=== PATIENT | male | born 2005 | race Caucasian/White ===

== ENCOUNTER 2025-01-08 13:58 | Inpatient (IN) ==
[2025-01-08 14:36] LABS: Basophils # (auto) 0.06 K/uL (0.00-0.20); Basophils % (auto) 0.7 %; Eosinophils % (auto) 1.2 %; Hematocrit (blood only) 45.4 % (42.0-52.0); Hemoglobin 15.9 g/dl (14.0-18.0); Immature Granulocytes # (auto) 0.06 K/uL (0.01-0.20); Immature Granulocytes % (auto) 0.7 %; Lymphocytes # (auto) 1.32 K/uL (1.20-3.40); Lymphocytes % (auto) 16.1 %; Mean Corpuscular Hemoglobin 31.2 pg (25.0-34.0); Mean Platelet Volume 11.3 fL (9.4-12.4); Monocytes # (auto) 0.79 K/uL (0.11-0.59); Monocytes % (auto) 9.7 %; Neutrophils # (auto) 5.85 K/uL (1.40-6.50); Neutrophils % (auto) 71.6 %; Platelet Count 327 K/uL (130-400); RDW Coefficient of Variation 15.9 % (11.5-14.5); RDW Standard Deviation 51.7 fL (36.4-46.3); White Blood Count 8.18 K/ul (4.8-10.8)
--- NOTE | 2025-01-08 14:44 | Emergency Department Note ---
ED Provider Note CHIEF COMPLAINT: Jaundice HISTORY OF PRESENTING ILLNESS: The patient is a pleasant 19-year-old male who arrives to the emergency department for evaluation of bilateral discoloration of eyes. The patient reports he noted the discoloration upon waking however, noted he has been tired over the last few weeks. He denies recent illness, fever, or abdominal pain. He reports he does drink alcohol 2-4 times per week with an average of 6-10 beverages each time. REVIEW OF SYSTEMS: See HPI for pertinent positives and pertinent negatives. ALLERGIES: See below MEDICATIONS: See below PAST MEDICAL HISTORY: See below PHYSICAL EXAM: VITALS: Vitals are noted on the nurse's note and reviewed by myself. Vital signs stable. GENERAL: 19-year-old male, in no acute distress, nondiaphoretic, well-developed well-nourished. SKIN: The skin is without rashes, erythema, edema, or bruising. HEAD: Normocephalic atraumatic. EYES: Pupils equal round and reactive to light and accommodation. Conjunctivae without injection. Scleral icterus present. Extraocular movements intact. NOSE: Patent, turbinates without inflammation or discharge. No sinus tenderness. MOUTH: Mucous membranes moist. Tonsils are not enlarged. Pharynx without erythema or exudate. Uvula midline. Airway patent. Tongue does not deviate. NECK: Supple without nuchal rigidity. No lymphadenopathy. No thyromegaly. Cervical spine is nontender. No JVD. HEART: Regular rate and rhythm without murmurs gallops or rubs. LUNGS: Clear to auscultation bilaterally without wheezes, rales or rhonchi. No retractions or accessory muscle use. ABDOMEN: Positive bowel sounds x 4. Soft, nontender, without masses or organomegaly. Al sign negative. No guarding or rebound tenderness. MUSCULOSKELETAL: No muscle atrophy, erythema, or edema noted. Full range of motion without joint tenderness in all extremities. No tenderness to palpation. Normal gait. Strength 5/5 throughout. NEURO: Patient was alert and oriented to person place and time. No focal neurological deficits. DIFFERENTIAL DIAGNOSIS: [] ED COURSE AND MEDICAL DECISION MAKING: HISTORY FROM INDEPENDENT HISTORIAN: [] MEDICATIONS GIVEN: [] MONITOR: Continuous rn family: Order was placed for continuous rn family. Patient was placed on the rn family and continuous pulse ox. Patient was noted to be in normal sinus rhythm at an initial rate of [] bpm per my interpretation. EKG: EKG was interpreted by myself as []. INTERPRETATION OF LABS: I interpreted the labs with full lab results as below in the lab section of this note. Pertinent lab results discussed in the MDM section below. INTERPRETATION OF IMAGING: Imaging studies were interpreted by myself and read by radiology as per the imaging section of this note. [] EXTERNAL RECORDS REVIEWED: [] CHRONIC MEDICAL/SOCIAL CONDITIONS AFFECTING CARE: [] ESCALATION OF CARE CONSIDERED: [] CONSULTATIONS: [] PROCEDURES: [] MDM SUMMARY: I examined the patient. An IV lock was placed and labs were drawn. []. The patient was educated on the treatment plan and the discharge instructions. The patient was discharged home in stable condition. DIAGNOSIS: [] The chart was completed utilizing [employer] voice recognition software. Grammatical errors, random word insertions, pronoun errors, and incomplete sentences are an occasional consequence of this system due to software limitations, ambient noise, and hardware issues. Any formal questions or concerns about the content, text, or information contained within the body of this dictation should be directly addressed to the provider for clarification. TREATMENT PLAN/DISCHARGE INSTRUCTIONS: [] Past Med/Surg History Problem List Hepatitis Medical History No significant past medical history Surgical History No history of previous surgery Social History Smoking Status: Never smoker Second Hand Exposure: No; Do You Dip or Chew Tobacco: No; Hx Alcohol Use: Yes Alcohol type: beer and hard liquor Hx Substance Use: Yes Last Used Substance Other:: stated used cocaine last semester Preferred Language: Greenlandic Communication Ability: Effective Lens Edger Required: No Beliefs That Will Affect Care: None Current Living Situation: Boarding Home Current Living Situation Comment: fraternity house 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: [employer]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 [place] Feels Safe at Home: Yes Assistive Devices: None Allergies Allergies Allergy/AdvReac Type Severity Reaction Status Date / Time No Known Allergies Allergy Verified 01/08/25 15:54 Home Meds Home Medications Medication Instructions Recorded Confirmed No Known Home Medications 08/08/24 01/08/25 Results & Data (ED) Vital Signs Vital Signs - 24 hr 01/08/25 14:02 01/08/25 14:19 01/08/25 14:27 Temperature 36.7 C Temperature Source Temporal Artery Scan Pulse Rate 67 67 Pulse Rate [Apical] 63 Pulse Rhythm [Apical] Regular Pulse Strength [Apical] Normal Respiratory Rate 16 18 Respiratory Effort / Characteristics Non-Labored Spontaneous Non-Labored Respiratory Depth Normal Normal Respiratory Pattern Regular Regular Blood Pressure 129/65 Blood Pressure [Right Arm] 141/89 H Blood Pressure Mean 86 Blood Pressure Mean [Right Arm] 106 Blood Pressure Position Sitting Blood Pressure Position [Right Arm] Lying Pulse Oximetry 98 99 Oxygen Delivery Method Room Air Room Air Sepsis Recent Fever Within 48 Hours No Sepsis New/Unexplained Change in Mental Status No Sepsis Action Taken by Nursing No Action Required Laboratory Data 01/09/25 08:30 01/10/25 13:26 Lab Results 01/08/25 01/08/25 01/08/25 Range/Units 14:20 14:20 14:20 WBC 8.18 (4.8-10.8) K/ul RBC 5.10 (4.70-6.10) M/uL Hgb 15.9 (14.0-18.0) g/dl Hct 45.4 (42.0-52.0) % MCV 89.0 (80.0-100.0) fL MCH 31.2 (25.0-34.0) pg MCHC 35.0 (32.0-36.0) g/dL RDW Std Deviation 51.7 H (36.4-46.3) fL RDW Coeff of Amrita 15.9 H (11.5-14.5) % Plt Count 327 (130-400) K/uL MPV 11.3 (9.4-12.4) fL Immature Gran % (Auto) 0.7 % Neut % (Auto) 71.6 % Lymph % (Auto) 16.1 % [place] % (Auto) 9.7 % Eos % (Auto) 1.2 % Baso % (Auto) 0.7 % Neut # (Auto) 5.85 (1.40-6.50) K/uL Lymph # (Auto) 1.32 (1.20-3.40) K/uL [place] # (Auto) 0.79 H (0.11-0.59) K/uL Eos # (Auto) 0.10 (0.00-0.50) K/uL Baso # (Auto) 0.06 (0.00-0.20) K/uL Immature Gran # (Auto) 0.06 (0.01-0.20) K/uL PT 10.9 (9.0-12.0) Seconds INR 1.0 (0.9-1.1) Sodium 136 (136-145) mmol/L Potassium 4.1 (3.5-5.1) mmol/L Chloride 102 (98-107) mmol/L Carbon Dioxide 27 (21-32) mmol/L Anion Gap 7 (3-11) BUN 13 (6-23) mg/dl Creatinine 1.25 (0.6-1.4) mg/dl Est Cr Clr Drug Dosing 82.6 ml/min eGFR 84.02 BUN/Creatinine Ratio 10.4 (10-20) Glucose 97 (70-99(Fasting)) mg/dl Calcium 9.5 (8.6-10.3) mg/dl Transferrin (200-360) mg/dl Ferritin (8-388) ng/ml Total Bilirubin 10.5 H 10.4 H (0.2-1.0) mg/dl Direct Bilirubin 6.4 H (0-0.2) mg/dl AST 399 H 393 H (13-39) U/L ALT 794 H (7-52) U/L Alkaline Phosphatase (34-104) U/L Total Protein (6.0-8.3) gm/dl Albumin (3.4-5.0) gm/dl Globulin (2.5-4.0) gm/dl Albumin/Globulin Ratio (0.9-2) Lipase (11-82) U/L Urine Color Urine Appearance (Clear) Urine pH (4.5-7.5) Ur Specific [place] (1.000-1.030) Urine Protein (Negative) Urine Glucose (UA) (Negative) Urine Ketones (Negative) Urine Blood (Negative) Urine Nitrite (Negative) Urine Bilirubin (Negative) Urine Urobilinogen (Negative) Ur Leukocyte Esterase (Negative) Urine Opiates Screen (Neg) Ur Methadone, Qual (Neg) Urine Fentanyl Screen (Neg) Acetaminophen (10-30) ug/ml Urine Barbiturates (Neg) Ur Phencyclidine (PCP) (Neg) U Amphetamin/Meth Scrn (Neg) MDMA (Ecstasy) Screen (Neg) U Benzodiazepines Scrn (Neg) Ur Cocaine Metabolite (Neg) U Marijuana (THC) Screen (Neg) U Marijuana THC Carboxy (<5) ng/mL Drug Screen Comment Ethyl Alcohol mg/dL (<10.0) mg/dl Adenovirus (PCR) (NotDetected) B. pertussis DNA (PCR) (NotDetected) B.parapertussis DNA PCR (NotDetected) C. pneumoniae DNA (PCR) (NotDetected) Coronavirus OC43 (PCR) (NotDetected) Coronavirus HKU1 (PCR) (NotDetected) Coronavirus 229E (PCR) (NotDetected) SARS-CoV-2 (PCR) (NotDetected) Coronavirus NL63 (PCR) (NotDetected) CMV IgM Ab AU/mL CMV DNA Qual PCR CMV IgG Ab/TORCH U/mL EBV Capsid Ag IgG Ab EBV Caps Ag IgG Sig Str (< 18.0) U/mL EBV Capsid Ag IgM Ab EBV Caps Ag IgM Sig Str (< 36.0) U/mL EBV Early Antigen IgG (Negative) EBV EA Signal Strength (< 9.0) U/mL EBV Nuclear Antigen Ab EBV Nucl Ag IgG Sig Str (< 18.0) U/mL EBV Interpretation Hepatitis A IgM Ab (NON-REACTIVE) Hep Bs Antigen (Negative) Hep B Core IgM Ab (NON-REACTIVE) Hepatitis C Antibody (Negative) Monoscreen (Negative) Human Metapneumovir PCR (NotDetected) Influenza Type A (PCR) (NotDetected) Influenza Type B (PCR) (NotDetected) M. pneumoniae (PCR) (NotDetected) Parainfluenza 1 (PCR) (NotDetected) Parainfluenza 2 (PCR) (NotDetected) Parainfluenza 3 (PCR) (NotDetected) Parainfluenza 4 (PCR) (NotDetected) RSV (PCR) (NotDetected) Entero/Rhino (PCR) (NotDetected) Ref Lab Test Source 01/08/25 01/08/25 01/08/25 Range/Units 14:20 14:20 14:20 WBC (4.8-10.8) K/ul RBC (4.70-6.10) M/uL Hgb (14.0-18.0) g/dl Hct (42.0-52.0) % MCV (80.0-100.0) fL MCH (25.0-34.0) pg MCHC (32.0-36.0) g/dL RDW Std Deviation (36.4-46.3) fL RDW Coeff of Amrita (11.5-14.5) % Plt Count (130-400) K/uL MPV (9.4-12.4) fL Immature Gran % (Auto) % Neut % (Auto) % Lymph % (Auto) % [place] % (Auto) % Eos % (Auto) % Baso % (Auto) % Neut # (Auto) (1.40-6.50) K/uL Lymph # (Auto) (1.20-3.40) K/uL [place] # (Auto) (0.11-0.59) K/uL Eos # (Auto) (0.00-0.50) K/uL Baso # (Auto) (0.00-0.20) K/uL Immature Gran # (Auto) (0.01-0.20) K/uL PT (9.0-12.0) Seconds INR (0.9-1.1) Sodium (136-145) mmol/L Potassium (3.5-5.1) mmol/L Chloride (98-107) mmol/L Carbon Dioxide (21-32) mmol/L Anion Gap (3-11) BUN (6-23) mg/dl Creatinine (0.6-1.4) mg/dl Est Cr Clr Drug Dosing ml/min eGFR BUN/Creatinine Ratio (10-20) Glucose (70-99(Fasting)) mg/dl Calcium (8.6-10.3) mg/dl Transferrin (200-360) mg/dl Ferritin (8-388) ng/ml Total Bilirubin (0.2-1.0) mg/dl Direct Bilirubin (0-0.2) mg/dl AST (13-39) U/L ALT 796 H (7-52) U/L Alkaline Phosphatase 173 H 162 H (34-104) U/L Total Protein 7.4 7.3 (6.0-8.3) gm/dl Albumin 4.5 (3.4-5.0) gm/dl Globulin (2.5-4.0) gm/dl Albumin/Globulin Ratio (0.9-2) Lipase (11-82) U/L Urine Color Urine Appearance (Clear) Urine pH (4.5-7.5) Ur Specific [place] (1.000-1.030) Urine Protein (Negative) Urine Glucose (UA) (Negative) Urine Ketones (Negative) Urine Blood (Negative) Urine Nitrite (Negative) Urine Bilirubin (Negative) Urine Urobilinogen (Negative) Ur Leukocyte Esterase (Negative) Urine Opiates Screen (Neg) Ur Methadone, Qual (Neg) Urine Fentanyl Screen (Neg) Acetaminophen (10-30) ug/ml Urine Barbiturates (Neg) Ur Phencyclidine (PCP) (Neg) U Amphetamin/Meth Scrn (Neg) MDMA (Ecstasy) Screen (Neg) U Benzodiazepines Scrn (Neg) Ur Cocaine Metabolite (Neg) U Marijuana (THC) Screen (Neg) U Marijuana THC Carboxy (<5) ng/mL Drug Screen Comment Ethyl Alcohol mg/dL (<10.0) mg/dl Adenovirus (PCR) (NotDetected) B. pertussis DNA (PCR) (NotDetected) B.parapertussis DNA PCR (NotDetected) C. pneumoniae DNA (PCR) (NotDetected) Coronavirus OC43 (PCR) (NotDetected) Coronavirus HKU1 (PCR) (NotDetected) Coronavirus 229E (PCR) (NotDetected) SARS-CoV-2 (PCR) (NotDetected) Coronavirus NL63 (PCR) (NotDetected) CMV IgM Ab AU/mL CMV DNA Qual PCR CMV IgG Ab/TORCH U/mL EBV Capsid Ag IgG Ab EBV Caps Ag IgG Sig Str (< 18.0) U/mL EBV Capsid Ag IgM Ab EBV Caps Ag IgM Sig Str (< 36.0) U/mL EBV Early Antigen IgG (Negative) EBV EA Signal Strength (< 9.0) U/mL EBV Nuclear Antigen Ab EBV Nucl Ag IgG Sig Str (< 18.0) U/mL EBV Interpretation Hepatitis A IgM Ab (NON-REACTIVE) Hep Bs Antigen (Negative) Hep B Core IgM Ab (NON-REACTIVE) Hepatitis C Antibody (Negative) Monoscreen (Negative) Human Metapneumovir PCR (NotDetected) Influenza Type A (PCR) (NotDetected) Influenza Type B (PCR) (NotDetected) M. pneumoniae (PCR) (NotDetected) Parainfluenza 1 (PCR) (NotDetected) Parainfluenza 2 (PCR) (NotDetected) Parainfluenza 3 (PCR) (NotDetected) Parainfluenza 4 (PCR) (NotDetected) RSV (PCR) (NotDetected) Entero/Rhino (PCR) (NotDetected) Ref Lab Test Source 01/08/25 01/08/25 01/08/25 Range/Units 14:20 14:40 15:39 WBC (4.8-10.8) K/ul RBC (4.70-6.10) M/uL Hgb (14.0-18.0) g/dl Hct (42.0-52.0) % MCV (80.0-100.0) fL MCH (25.0-34.0) pg MCHC (32.0-36.0) g/dL RDW Std Deviation (36.4-46.3) fL RDW Coeff of Amrita (11.5-14.5) % Plt Count (130-400) K/uL MPV (9.4-12.4) fL Immature Gran % (Auto) % Neut % (Auto) % Lymph % (Auto) % [place] % (Auto) % Eos % (Auto) % Baso % (Auto) % Neut # (Auto) (1.40-6.50) K/uL Lymph # (Auto) (1.20-3.40) K/uL [place] # (Auto) (0.11-0.59) K/uL Eos # (Auto) (0.00-0.50) K/uL Baso # (Auto) (0.00-0.20) K/uL Immature Gran # (Auto) (0.01-0.20) K/uL PT (9.0-12.0) Seconds INR (0.9-1.1) Sodium (136-145) mmol/L Potassium (3.5-5.1) mmol/L Chloride (98-107) mmol/L Carbon Dioxide (21-32) mmol/L Anion Gap (3-11) BUN (6-23) mg/dl Creatinine (0.6-1.4) mg/dl Est Cr Clr Drug Dosing ml/min eGFR BUN/Creatinine Ratio (10-20) Glucose (70-99(Fasting)) mg/dl Calcium (8.6-10.3) mg/dl Transferrin 303 (200-360) mg/dl Ferritin 1263.4 H (8-388) ng/ml Total Bilirubin (0.2-1.0) mg/dl Direct Bilirubin 6.8 H (0-0.2) mg/dl AST (13-39) U/L ALT (7-52) U/L Alkaline Phosphatase (34-104) U/L Total Protein (6.0-8.3) gm/dl Albumin 4.2 (3.4-5.0) gm/dl Globulin 2.9 (2.5-4.0) gm/dl Albumin/Globulin Ratio 1.6 (0.9-2) Lipase 29 (11-82) U/L Urine Color Dark Yellow Urine Appearance Clear (Clear) Urine pH 8.5 H (4.5-7.5) Ur Specific [place] 1.013 (1.000-1.030) Urine Protein Negative (Negative) Urine Glucose (UA) Negative (Negative) Urine Ketones Negative (Negative) Urine Blood Negative (Negative) Urine Nitrite Negative (Negative) Urine Bilirubin 2+ H (Negative) Urine Urobilinogen Positive H (Negative) Ur Leukocyte Esterase Negative (Negative) Urine Opiates Screen Neg (Neg) Ur Methadone, Qual Neg (Neg) Urine Fentanyl Screen Neg (Neg) Acetaminophen < 3 L (10-30) ug/ml Urine Barbiturates Neg (Neg) Ur Phencyclidine (PCP) Neg (Neg) U Amphetamin/Meth Scrn Neg (Neg) MDMA (Ecstasy) Screen Neg (Neg) U Benzodiazepines Scrn Neg (Neg) Ur Cocaine Metabolite Neg (Neg) U Marijuana (THC) Screen Pos H (Neg) U Marijuana THC Carboxy 36 H (<5) ng/mL Drug Screen Comment SEE NOTE Ethyl Alcohol mg/dL < 10.0 (<10.0) mg/dl Adenovirus (PCR) Not Detected (NotDetected) B. pertussis DNA (PCR) Not Detected (NotDetected) B.parapertussis DNA PCR Not Detected (NotDetected) C. pneumoniae DNA (PCR) Not Detected (NotDetected) Coronavirus OC43 (PCR) Not Detected (NotDetected) Coronavirus HKU1 (PCR) Not Detected (NotDetected) Coronavirus 229E (PCR) Not Detected (NotDetected) SARS-CoV-2 (PCR) Not Detected (NotDetected) Coronavirus NL63 (PCR) Not Detected (NotDetected) CMV IgM Ab AU/mL CMV DNA Qual PCR CMV IgG Ab/TORCH U/mL EBV Capsid Ag IgG Ab Positive EBV Caps Ag IgG Sig Str 60.8 (< 18.0) U/mL EBV Capsid Ag IgM Ab Negative EBV Caps Ag IgM Sig Str < 10.0 (< 36.0) U/mL EBV Early Antigen IgG Negative (Negative) EBV EA Signal Strength 6.4 (< 9.0) U/mL EBV Nuclear Antigen Ab Positive EBV Nucl Ag IgG Sig Str 62.1 (< 18.0) U/mL EBV Interpretation See Comment Hepatitis A IgM Ab (NON-REACTIVE) Hep Bs Antigen (Negative) Hep B Core IgM Ab (NON-REACTIVE) Hepatitis C Antibody (Negative) Monoscreen Negative (Negative) Human Metapneumovir PCR Not Detected (NotDetected) Influenza Type A (PCR) Not Detected (NotDetected) Influenza Type B (PCR) Not Detected (NotDetected) M. pneumoniae (PCR) Not Detected (NotDetected) Parainfluenza 1 (PCR) Not Detected (NotDetected) Parainfluenza 2 (PCR) Not Detected (NotDetected) Parainfluenza 3 (PCR) Not Detected (NotDetected) Parainfluenza 4 (PCR) Not Detected (NotDetected) RSV (PCR) Not Detected (NotDetected) Entero/Rhino (PCR) Not Detected (NotDetected) Ref Lab Test Source 01/08/25 01/08/25 Range/Units 16:15 16:16 WBC (4.8-10.8) K/ul RBC (4.70-6.10) M/uL Hgb (14.0-18.0) g/dl Hct (42.0-52.0) % MCV (80.0-100.0) fL MCH (25.0-34.0) pg MCHC (32.0-36.0) g/dL RDW Std Deviation (36.4-46.3) fL RDW Coeff of Amrita (11.5-14.5) % Plt Count (130-400) K/uL MPV (9.4-12.4) fL Immature Gran % (Auto) % Neut % (Auto) % Lymph % (Auto) % [place] % (Auto) % Eos % (Auto) % Baso % (Auto) % Neut # (Auto) (1.40-6.50) K/uL Lymph # (Auto) (1.20-3.40) K/uL [place] # (Auto) (0.11-0.59) K/uL Eos # (Auto) (0.00-0.50) K/uL Baso # (Auto) (0.00-0.20) K/uL Immature Gran # (Auto) (0.01-0.20) K/uL PT (9.0-12.0) Seconds INR (0.9-1.1) Sodium (136-145) mmol/L Potassium (3.5-5.1) mmol/L Chloride (98-107) mmol/L Carbon Dioxide (21-32) mmol/L Anion Gap (3-11) BUN (6-23) mg/dl Creatinine (0.6-1.4) mg/dl Est Cr Clr Drug Dosing ml/min eGFR BUN/Creatinine Ratio (10-20) Glucose (70-99(Fasting)) mg/dl Calcium (8.6-10.3) mg/dl Transferrin (200-360) mg/dl Ferritin (8-388) ng/ml Total Bilirubin (0.2-1.0) mg/dl Direct Bilirubin (0-0.2) mg/dl AST (13-39) U/L ALT (7-52) U/L Alkaline Phosphatase (34-104) U/L Total Protein (6.0-8.3) gm/dl Albumin (3.4-5.0) gm/dl Globulin (2.5-4.0) gm/dl Albumin/Globulin Ratio (0.9-2) Lipase (11-82) U/L Urine Color Urine Appearance (Clear) Urine pH (4.5-7.5) Ur Specific [place] (1.000-1.030) Urine Protein (Negative) Urine Glucose (UA) (Negative) Urine Ketones (Negative) Urine Blood (Negative) Urine Nitrite (Negative) Urine Bilirubin (Negative) Urine Urobilinogen (Negative) Ur Leukocyte Esterase (Negative) Urine Opiates Screen (Neg) Ur Methadone, Qual (Neg) Urine Fentanyl Screen (Neg) Acetaminophen (10-30) ug/ml Urine Barbiturates (Neg) Ur Phencyclidine (PCP) (Neg) U Amphetamin/Meth Scrn (Neg) MDMA (Ecstasy) Screen (Neg) U Benzodiazepines Scrn (Neg) Ur Cocaine Metabolite (Neg) U Marijuana (THC) Screen (Neg) U Marijuana THC Carboxy (<5) ng/mL Drug Screen Comment Ethyl Alcohol mg/dL (<10.0) mg/dl Adenovirus (PCR) (NotDetected) B. pertussis DNA (PCR) (NotDetected) B.parapertussis DNA PCR (NotDetected) C. pneumoniae DNA (PCR) (NotDetected) Coronavirus OC43 (PCR) (NotDetected) Coronavirus HKU1 (PCR) (NotDetected) Coronavirus 229E (PCR) (NotDetected) SARS-CoV-2 (PCR) (NotDetected) Coronavirus NL63 (PCR) (NotDetected) CMV IgM Ab <30.00 AU/mL CMV DNA Qual PCR NOT DETECTED CMV IgG Ab/TORCH <0.60 U/mL EBV Capsid Ag IgG Ab EBV Caps Ag IgG Sig Str (< 18.0) U/mL EBV Capsid Ag IgM Ab EBV Caps Ag IgM Sig Str (< 36.0) U/mL EBV Early Antigen IgG (Negative) EBV EA Signal Strength (< 9.0) U/mL EBV Nuclear Antigen Ab EBV Nucl Ag IgG Sig Str (< 18.0) U/mL EBV Interpretation Hepatitis A IgM Ab NON-REACTIVE (NON-REACTIVE) Hep Bs Antigen Negative (Negative) Hep B Core IgM Ab NON-REACTIVE (NON-REACTIVE) Hepatitis C Antibody Negative (Negative) Monoscreen (Negative) Human Metapneumovir PCR (NotDetected) Influenza Type A (PCR) (NotDetected) Influenza Type B (PCR) (NotDetected) M. pneumoniae (PCR) (NotDetected) Parainfluenza 1 (PCR) (NotDetected) Parainfluenza 2 (PCR) (NotDetected) Parainfluenza 3 (PCR) (NotDetected) Parainfluenza 4 (PCR) (NotDetected) RSV (PCR) (NotDetected) Entero/Rhino (PCR) (NotDetected) Ref Lab Test Source Whole Blood Administered Medications Discontinued Medications Lactated Ringer's (Lr) 1,000 mls @ 125 mls/hr IV .Q8H GAGE Stop: 01/09/25 18:14 Last Infusion: 01/09/25 23:47 Dose: Infused Documented By: Admin: 01/09/25 10:28 Dose: 125 mls/hr Documented By: Infusion: 01/09/25 10:28 Dose: Infused Documented By: Admin: 01/09/25 02:30 Dose: 125 mls/hr Documented By: Infusion: 01/09/25 02:28 Dose: Infused Documented By: Admin: 01/08/25 18:28 Dose: 125 mls/hr Documented By: CAP Ioversol (Optiray 320 100ml) 93 ml IV ONCE ONE Stop: 01/08/25 15:50 Last Admin: 01/08/25 15:49 Dose: 93 ml Documented By: PLW Discharge Plan Visit Data Chief Complaint: Eye Problems Stated Complaint: YELLOW EYES, RUN DOWN ED Provider: James Wolfe ED Midlevel Provider: Kala Perez Patient Disposition: Admitted As Inpatient Discharge Instructions Interventions: ED Discharge Assessment Last Done: 01/08/25 20:52
[2025-01-08 14:58] LABS: Monotest Negative (Negative)
[2025-01-08 15:01] LABS: Albumin Level 4.5 gm/dl (3.4-5.0); Bilirubin,Total 10.5 mg/dl (0.2-1.0); Calcium 9.5 mg/dl (8.6-10.3); Potassium 4.1 mmol/L (3.5-5.1)
[2025-01-08 15:07] LABS: BUN Creatinine Ratio 10.4 (10-20); Creatinine Clr Calc Pharmacy 82.6 ml/min
[2025-01-08 15:27] LABS: Appearance Urine Clear (Clear); Bilirubin Urine 2+ (Negative); Blood Urine Negative (Negative); Color Urine Dark Yellow; Glucose Urine UA Negative (Negative); Ketones Urine Negative (Negative); Leukocyte Esterase Urine Negative (Negative); Nitrite Urine Negative (Negative); Protein Urine Negative (Negative); Specific Gravity Urine 1.013 (1.000-1.030); Urobilinogen Urine Positive (Negative); pH Urine 8.5 (4.5-7.5)
[2025-01-08 15:33] LABS: EBV Nuclear Antigen IgG Ab Positive; EBV Nuclear Antigen IgG Quant 62.1 U/mL (< 18.0)
[2025-01-08 15:34] LABS: EBV Early Antigen IgG Ab Negative (Negative); EBV Early Antigen IgG Quant 6.4 U/mL (< 9.0); EBV IgM Quant < 10.0 U/mL (< 36.0)
[2025-01-08 15:35] LABS: EBV IgG Quant 60.8 U/mL (< 18.0)
[2025-01-08 15:46] LABS: Albumin Globulin Ratio 1.6 (0.9-2); Globulin 2.9 gm/dl (2.5-4.0); Total Protein 7.4 gm/dl (6.0-8.3)
[2025-01-08] MEDS: OPTIRAY 320 100ml IV ONE (15:49)
[2025-01-08 16:07] LABS: Prothrombin Time 10.9 Seconds (9.0-12.0)
--- NOTE | 2025-01-08 16:11 | CT Scan Report ---
Clinical History: Fatigue Technique: Axial computed tomography images were obtained of the abdomen and pelvis after the administration of intravenous contrast. Comparison is made to the prior CT dated 08/08/2024. Findings: The liver is overall of normal size, attenuation, and contour with no sign of cirrhosis or significant fatty infiltration. No liver mass lesion is seen. The portal vein is patent. The gallbladder appears unremarkable. No bile duct dilatation is noted. The spleen is of normal size. No focal splenic lesion is evident. The pancreas appears normal with no sign of acute or chronic pancreatitis and no mass lesion noted. The pancreatic duct is of normal caliber. The adrenal glands appear unremarkable. No definite renal or proximal ureteral calculi are seen on this contrast-enhanced study. There is no hydronephrosis or perinephric stranding. No renal mass lesion is identified. The aorta is of normal caliber. No abdominal adenopathy is seen. The stomach appears normal. There is no sign of small bowel obstruction. There is suspected mild wall thickening of small bowel loops. There is constipation. There is no definite sign of appendicitis. No free intraperitoneal fluid or air is identified. No distal ureteral or bladder calculi are seen. No bladder mass lesion is evident. The iliac arteries are of normal caliber. No pelvic adenopathy is noted. The lungs bases appear clear. No fracture is identified. No focal osseous lesion is seen Impression: 1. Suspected mild small bowel wall thickening, which may be due to infectious enteritis or inflammatory bowel disease 2. Constipation ACT 112: Positive. There are findings on this exam that require communication between the performing entity and the patient following Patient Test Result Information Act ([place] ACT 112) guidelines. Electronically signed by Ehsan Day 01-08-2025 4:11 PM
[2025-01-08 16:46] LABS: Adenovirus PCR Not Detected (NotDetected); Bordetella parapertussis PCR Not Detected (NotDetected); Bordetella pertussis PCR Not Detected (NotDetected); Chlamydia pneumoniae PCR Not Detected (NotDetected); Coronavirus 229E PCR Not Detected (NotDetected); Coronavirus CoV-2 (COVID19)PCR Not Detected (NotDetected); Coronavirus HKU1 PCR Not Detected (NotDetected); Coronavirus NL63 PCR Not Detected (NotDetected); Coronavirus OC43PCR Not Detected (NotDetected); Human Metapneumovirus PCR Not Detected (NotDetected); Influenza A PCR Not Detected (NotDetected); Influenza B PCR Not Detected (NotDetected); Mycoplasma pneumoniae PCR Not Detected (NotDetected); Parainfluenza Virus 1 PCR Not Detected (NotDetected); Parainfluenza Virus 2 PCR Not Detected (NotDetected); Parainfluenza Virus 3 PCR Not Detected (NotDetected); Parainfluenza Virus 4 PCR Not Detected (NotDetected); Respiratory Syncytial VirusPCR Not Detected (NotDetected); Rhinovirus/Enterovirus PCR Not Detected (NotDetected)
[2025-01-08 16:49] LABS: Amphetamines+Metham, Urine Neg (Neg); Barbiturates, Urine Neg (Neg); Benzodiazepine, Urine Neg (Neg); Cocaine, Urine Neg (Neg); Fentanyl, Urine Neg (Neg); MDMA (Ecstacy), Urine Neg (Neg); Marijuana, Urine Pos (Neg); Methadone, Urine Neg (Neg); Opiate, Urine Neg (Neg); Phencyclidine, Urine Neg (Neg)
[2025-01-08 16:50] LABS: Albumin Level 4.2 gm/dl (3.4-5.0); Bilirubin Direct 6.4 mg/dl (0-0.2); Bilirubin,Total 10.4 mg/dl (0.2-1.0)
[2025-01-08 17:13] LABS: Total Protein 7.3 gm/dl (6.0-8.3)
[2025-01-08 17:16] LABS: Hep B Surface Ag with confirm Negative (Negative)
[2025-01-08 17:22] LABS: Hep C Ab Rflx HepCQuant RNA Negative (Negative)
--- NOTE | 2025-01-08 18:13 | History & Physical Report ---
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 Patient denies taking any tylenol/acetaminophen. 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 Will consult GI. Ordered hepatitis panel. will trend LFTs Bilirubin is elevated above 10. Reviewed ct scan findings. ALT close to 800 and AST above 300. will order iron studies to check for hemochromatosis. History of Present Illness Chief Complaint: Jaundiced Primary Care Provider: NO PCP 19 yo male with no significant PMH and Family history of liver disease presents to the hospital for having yellow eyes. He states he drinks heavily 2-4 times a week as he lives in a fraternity but he states she does not drink more than his fraternity brothers. Patient reports he has been more fatigued over the past few weeks. He denies any sick contacts. As he noticed yellow eyes today he decided to come to the hospital. Allergies Allergy/AdvReac Type Severity Reaction Status Date / Time No Known Allergies Allergy Verified 01/08/25 15:54 Home Medications Medication Instructions Recorded Confirmed Type No Known Home Medications 08/08/24 01/08/25 History Past Med/Surg History Problem List (Updated 01/09/25 @ 11:30 by Zach Smith) Hepatitis Medical History No significant past medical history Surgical History No history of previous surgery Social History Smoking Status: Never smoker Second Hand Exposure: No; Do You Dip or Chew Tobacco: No; Hx Alcohol Use: Yes Alcohol type: beer and hard liquor Hx Substance Use: Yes Last Used Substance Other:: stated used cocaine last semester Preferred Language: [place] Communication Ability: Effective 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 Required: No Beliefs That Will Affect Care: None Current Living Situation: Boarding Home Current Living Situation Comment: fraternity house 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: [employer]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 [place] Other Information That Helps Us Care for You: No Feels Safe at Home: Yes Safety Concerns: Feels Safe At This Time Assistive Devices: None Review of Systems Constitutional: no fever and no body aches Eyes: no blind spots Ear, Nose, Mouth, Throat: no ear pain Respiratory: no cough Cardiovascular: no chest pain Gastrointestinal: no abdominal pain Genitourinary: no dysuria Integumentary: no acne Neurologic: no gait abnormality Psychiatric: no behavioral changes Endocrine: + fatigue Hematologic / Lymphatic: no easy bleeding Allergy / Immunological: no GI upset with certain foods Physical Exam Constitutional: WD/WN, vitals as above Eyes: PERRL, conjunctivae normal, anicteric sclerae ENMT: external ear and nose normal, oropharynx normal Neck: trachea midline, no thyromegaly Respiratory: normal respiratory effort, lungs clear to auscultation Cardiovascular: RRR, no murmur, no edema Gastrointestinal (Abdomen): normal bowel sounds, soft, nontender, no hepatosplenomegaly Musculoskeletal: no cyanosis or clubbing, extremities motor strength 5/5 Skin: no rashes, warm and dry Neurologic: PERRL, EOMI, accommodation nl, no face palsy, no dysarthria Psychiatric: A+Ox3, euthymic affect Lymphatic: no cervical or axillary lymphadenopathy Results & Data Results & Data Vital Signs (Past 12 Hours) Vital Signs Temp Pulse Pulse Resp BP BP Pulse Ox 01/08/25 18:10 60 01/08/25 18:01 165/98 H 97 01/08/25 17:36 60 19 01/08/25 17:21 63 19 01/08/25 16:33 67 18 01/08/25 16:00 62 01/08/25 15:33 65 01/08/25 15:00 65 17 99 01/08/25 14:39 59 L 21 01/08/25 14:27 63 18 141/89 H 99 01/08/25 14:19 67 01/08/25 14:18 61 16 99 01/08/25 14:15 141/89 H 01/08/25 14:02 36.7 C 67 16 129/65 98 O2 Del Method 01/08/25 18:10 01/08/25 18:01 Room Air 01/08/25 17:36 01/08/25 17:21 01/08/25 16:33 01/08/25 16:00 01/08/25 15:33 01/08/25 15:00 01/08/25 14:39 01/08/25 14:27 Room Air 01/08/25 14:19 01/08/25 14:18 01/08/25 14:15 01/08/25 14:02 Room Air PG Care Time/CCT Total # of Minutes Spent Total Time Spent with Patient: Total time spent is greater than 50% in coordination of care (as documented) at patient's floor/unit and/or counseling patient: Coding Level of Care Code 72465 INT INP/OBS CARE 3/75MIN Diagnoses Hepatitis K75.9
[2025-01-08] MEDS: LACTATED RINGER'S 1,000 ML IV SCH (18:28)
[2025-01-08 19:17] LABS: Ferritin 1263.4 ng/ml (8-388)
[2025-01-09 08:51] LABS: Hematocrit (blood only) 42.4 % (42.0-52.0); Hemoglobin 14.6 g/dl (14.0-18.0); Mean Corpuscular Hemoglobin 30.7 pg (25.0-34.0); Mean Corpuscular Hgb Conc 34.4 g/dL (32.0-36.0); Mean Corpuscular Volume 89.3 fL (80.0-100.0); Mean Platelet Volume 11.4 fL (9.4-12.4); Platelet Count 307 K/uL (130-400); RDW Coefficient of Variation 16.3 % (11.5-14.5); RDW Standard Deviation 53.6 fL (36.4-46.3); Red Blood Count 4.75 M/uL (4.70-6.10); White Blood Count 8.01 K/ul (4.8-10.8)
[2025-01-09 09:08] LABS: Anion Gap 4 (3-11); BUN Creatinine Ratio 8.8 (10-20); Blood Urea Nitrogen 10 mg/dl (6-23); C Reactive Protein < 0.50 mg/dl (0-0.5); Carbon Dioxide 31 mmol/L (21-32); Chloride 102 mmol/L (98-107); Glucose 137 mg/dl (70-99(Fasting)); Potassium 4.2 mmol/L (3.5-5.1); Sodium 137 mmol/L (136-145)
[2025-01-09 09:17] LABS: Albumin Globulin Ratio 1.4 (0.9-2); Albumin Level 3.7 gm/dl (3.4-5.0); Alkaline Phosphatase 139 U/L (34-104); Aspartate Aminotransferase 326 U/L (13-39); Bilirubin,Total 11.8 mg/dl (0.2-1.0); Globulin 2.6 gm/dl (2.5-4.0); Iron 272 mcg/dl (35-175); Total Iron Binding Cap Calc 347 mcg/dl (250-450); Total Protein 6.3 gm/dl (6.0-8.3); Transferrin 248 mg/dl (200-360); Transferrin (FE) Percent Satur 78 % (20-50)
[2025-01-09 09:28] LABS: Alanine Aminotransferase 686 U/L (7-52)
--- NOTE | 2025-01-09 13:49 | Gastrointestinal Consultation ---
Date of Consultation January 09, 2025 Assessment & Plan (1) Hepatitis: -Infectious hepatitis studies pending -EBV without acute infection -Will add autoimmune work-up, CMV, Ceruloplasmin -Avoid alcohol -Further recommendations pending work-up and discussion with Dr. Vazquez Supervising Physician Co-Signing Physician Notes I examined the patient and reviewed patient's chart , laboratory data and imaging studies. I agree with with assessment and plan of care as suggested by advanced practice provider. Acute hepatitis, r/o acute hepatitis A - anti HAV IgA pending vs. drug induced ( enclomiphene ). AIH less likely. Elevated ferritin - secondary to acute liver injury. To obtain AIH panel, ceruloplasmin, genetic assay for hemochtomatosis. Monitor LFTs. If stable OK to discharge tomorrow Instructed to discontinue enclomiphene. Will arrange for a follow up in the office in 1-2 weeks. History of Present Illness Reason for Consultation: Elevated bilirubin Attending Physician: Zach Smith History of Present Illness Patient is a 19 yo male with no PMH and no family history of liver disease who presented to the hospital for jaundice/scleral icterus. He notes that over the past several weeks he has been feeling fatigued. He denies abdominal pain. He drinks 2-4 days per week, each time having 6-10 drinks. He notes no recent infection, antibiotics, or new prescription medication. No drug use. He does acknowledge he recently completed a 6 week course of some type of workout supplement. LFTs indicated a T bili of 10.4, D bili 6.8, AST 393, ALT [address] abdomen/pelvis indicated: 1. Suspected mild small bowel wall thickening, which may be due to infectious enteritis or inflammatory bowel disease 2. Constipation Patient had a CT in July 2024 that was also indicative of small bowel disease. Allergies Allergy/AdvReac Type Severity Reaction Status Date / Time No Known Allergies Allergy Verified 01/08/25 15:54 Home Medications Medication Instructions Recorded Confirmed Type No Known Home Medications 08/08/24 01/08/25 History Patient History Medical History No significant past medical history Surgical History No history of previous surgery Social History Smoking Status: Never smoker Second Hand Exposure: No; Do You Dip or Chew Tobacco: No; Hx Alcohol Use: Yes Alcohol type: beer and hard liquor Hx Substance Use: Yes Last Used Substance Other:: stated used cocaine last semester Preferred Language: Nepalese Communication Ability: Effective 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 [place] Other Information That Helps Us Care for You: No Feels Safe at Home: Yes Safety Concerns: Feels Safe At This Time Assistive Devices: None Review of Systems Constitutional: no fever and no chills Respiratory: no cough and no dyspnea Cardiovascular: no chest pain Gastrointestinal: no abdominal pain Integumentary: + skin swelling and + yellowing of the s kin Physical Exam Gastrointestinal (Abdomen): normal bowel sounds, soft, nontender, no hepatosplenomegaly Results & Data Vital Signs (Past 12 Hours) Vital Signs Temp Pulse Resp BP Pulse Ox O2 Del Method 01/09/25 07:56 36.5 C 62 16 120/67 98 Room Air PG Care Time/CCT Total # of Minutes Spent Total Time Spent with Patient: Total time spent is greater than 50% in coordination of care (as documented) at patient's floor/unit and/or counseling patient: Coding Level of Care Code 92834 IN/OBS CONSULT LVL 4,60M Diagnoses Hepatitis K75.9
--- NOTE | 2025-01-09 23:34 | Hospitalist Progress Note ---
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 Patient denies taking any tylenol/acetaminophen. 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 awaiting hepatitis panel. APpreciate input from GI LFTS are down trending however bilirrubin is rising. iron studies are elevated ordered hemochromatosis genetic assay, Admission and Anticipated Discharge Date Admission Date: January 08, 2025 Subjective Patient denies any symptoms at this time. Physical Exam Constitutional: WD/WN, vitals as above Eyes: icteric sclera ENMT: external ear and nose normal, oropharynx normal Neck: trachea midline, no thyromegaly Respiratory: normal respiratory effort, lungs clear to auscultation Cardiovascular: RRR, no murmur, no edema Gastrointestinal (Abdomen): normal bowel sounds, soft, nontender, no hepatosplenomegaly Musculoskeletal: no cyanosis or clubbing, extremities motor strength 5/5 Skin: no rashes, warm and dry Neurologic: PERRL, EOMI, accommodation nl, no face palsy, no dysarthria Psychiatric: A+Ox3, euthymic affect Lymphatic: no cervical or axillary lymphadenopathy Results & Data Results & Data Vital Signs (Past 12 Hours) Vital Signs Temp Pulse Resp BP Pulse Ox O2 Del Method 01/09/25 20:09 36.9 C 56 L 18 132/79 99 Room Air 01/09/25 15:18 36.5 C 62 16 120/67 98 Room Air PG Care Time/CCT Total # of Minutes Spent Total Time Spent with Patient: Total time spent is greater than 50% in coordination of care (as documented) at patient's floor/unit and/or counseling patient: Coding Level of Care Code 97083 SUB INP/OBS CARE 3/50MIN Diagnoses Hepatitis K75.9
[2025-01-10 07:39] LABS: BUN Creatinine Ratio 7.6 (10-20); Calcium 9.4 mg/dl (8.6-10.3); Creatinine Clr Calc Pharmacy 74.5 ml/min; Potassium 4.8 mmol/L (3.5-5.1)
[2025-01-10 07:45] VITALS: BP 120/74; PULSE 58; RESP 16; TEMP 98.1; O2SAT 98
[2025-01-10 08:05] LABS: Albumin Globulin Ratio 1.4 (0.9-2); Bilirubin,Total 14.4 mg/dl (0.2-1.0); Globulin 2.9 gm/dl (2.5-4.0); Total Protein 6.9 gm/dl (6.0-8.3)
--- NOTE | 2025-01-10 09:25 | Gastroenterology Progress Note ---
Date of Service January 10, 2025 Assessment & Plan (1) Hepatitis: Plan: As patient is currently asymptomatic there is no reason he cannot go home and follow with GI as an outpatient to get results of pending labs and to follow to resolution. Admission and Anticipated Discharge Date Admission Date: January 08, 2025 Subjective Feels well. No vomiting. No fever. No bleeding. LFT's stable Physical Exam Physical Exam: He looks comfortable Constitutional: WD/WN, vitals as above Results & Data Vital Signs (Past 12 Hours) Vital Signs Temp Pulse Resp BP Pulse Ox O2 Del Method 01/10/25 07:44 36.7 C 58 L 16 120/74 98 Room Air
[2025-01-10 14:05] LABS: Creatinine Clr Calc Pharmacy 82.6 ml/min
[2025-01-10 14:14] LABS: Appearance Urine Clear (Clear); Bilirubin Urine 3+ (Negative); Blood Urine Negative (Negative); Color Urine Dark Yellow; Glucose Urine UA Negative (Negative); Ketones Urine Negative (Negative); Leukocyte Esterase Urine Negative (Negative); Nitrite Urine Negative (Negative); Protein Urine Negative (Negative); Specific Gravity Urine 1.009 (1.000-1.030); Urobilinogen Urine Negative (Negative); pH Urine 7.5 (4.5-7.5)
[2025-01-10 15:01] LABS: Creatinine Urine Random 69.6 mg/dl
[2025-01-11 15:47] LABS: Marijuana Quant, GCMS Urine 36 ng/mL (<5)
[2025-01-12 12:57] LABS: CMV IgG Antibody <0.60 U/mL; CMV IgM Antibody <30.00 AU/mL; Hepatitis A Antibody IgM NON-REACTIVE (NON-REACTIVE); Hepatitis B Core Antibody IgM NON-REACTIVE (NON-REACTIVE)
[2025-01-12 16:52] LABS: CMV DNA PCR Qual NOT DETECTED; Source Whole Blood
--- NOTE | 2025-01-13 10:40 | Discharge Summary ---
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 Patient denies taking any tylenol/acetaminophen. 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 awaiting hepatitis panel. APpreciate input from GI LFTS are down trending however bilirrubin is rising. iron studies are elevated ordered hemochromatosis genetic assay, Admission HPI Per Admitting Provider 19 yo male with no significant PMH and Family history of liver disease presents to the hospital for having yellow eyes. He states he drinks heavily 2-4 times a week as he lives in a fraternity but he states she does not drink more than his fraternity brothers. Patient reports he has been more fatigued over the past few weeks. He denies any sick contacts. As he noticed yellow eyes today he decided to come to the hospital. Discharge Exam Constitutional WD/WN, vitals as above Eyes PERRL, conjunctivae normal, anicteric sclerae ENMT external ear and nose normal, oropharynx normal Neck trachea midline, no thyromegaly Respiratory normal respiratory effort, lungs clear to auscultation Cardiovascular RRR, no murmur, no edema Gastrointestinal (Abdomen) normal bowel sounds, soft, nontender, no hepatosplenomegaly Musculoskeletal no cyanosis or clubbing, extremities motor strength 5/5 Skin no rashes, warm and dry Neurologic PERRL, EOMI, accommodation nl, no face palsy, no dysarthria Psychiatric A+Ox3, euthymic affect Lymphatic no cervical or axillary lymphadenopathy Discharge Plan Discharge Items Patient Disposition: Home - Self-Care Reason For Visit: JAUNDICED Discharge Diagnosis: jaundiced Activity: Per Instructions section Non-emergency contact: Primary Care Provider Call non-emergency contact if: you have any medication questions Follow-up/Referrals: PCP,NO [Primary Care Provider] - Diet: Low Fat Ambulatory Orders: Comprehensive Metabolic Panel (Routine) Timeframe: [id number] Location: Determined by Patient Ordered By: Zach Ocasio Attending Provider Instructions: Labs results: Bilirubin evelyn from 10.5 to 14.4 (Normal range 0.2-1.0 mg/dl) Direct Bilirubin evelyn from 6.4 to 9.0 (Normal range: 0.0-0.2 mg/dl) AST: improved from 399 to 289 (normal is 13-39) ALT improved from 794 to 697 u/L (normal is 7-52) Alk Phos improved from 173 to 153 U/l (normal is 34-104) Recommend followup with [facility] within one week. Recommend abstaining from any alcohol. Recommend limiting exertional activity until cleared by S. Recommend followup with Gastroenterology. This will be scheduled. Complete blood work on Sunday. Instructed to discontinue enclomiphene. Pending Studies at Discharge: No Stand-Alone Forms: [employer], Smoking Cessation Medications and DC Order Prescriptions: No Action No Known Home Medications Discharge Orders: Discharge Order (Routine); Ordered 01/10/25 Ordered By: Zach Basurto/Other Patient Handouts: Tests for Liver Disease, Anatomy of the Digestive System, ED Hepatitis Unk Cause Admission Data Admit Date/Time: 01/08/25 17:48 Attending Provider: Zach Smith Admit Provider: Zach Smith Primary Care Provider: PCP,NO Other Providers: Leo Vazquez; Cliff Chin Jr Other Interventions: Discharge Summary Assessment (RN) Last Done: 01/10/25 15:15 Hospital Stay Data Consultations 01/08/25 17:48 Consult Gastroenterology Routine 01/08/25 17:53 ED Decision to Admit Stat Diagnostic Imagining Performed 01/08/25 15:24 CT Abd and Pelvis [CT abd pelvis IV con only] Stat Pending Results Patient Have Any Pending Studies at Discharge: No Discharge Instructions Given to Patient (Per Discharging Provider) Labs results: Bilirubin evelyn from 10.5 to 14.4 (Normal range 0.2-1.0 mg/dl) Direct Bilirubin evelyn from 6.4 to 9.0 (Normal range: 0.0-0.2 mg/dl) AST: improved from 399 to 289 (normal is 13-39) ALT improved from 794 to 697 u/L (normal is 7-52) Alk Phos improved from 173 to 153 U/l (normal is 34-104) Recommend followup with [facility] within one week. Recommend abstaining from any alcohol. Recommend limiting exertional activity until cleared by [facility]. Recommend followup with Gastroenterology. This will be scheduled. Complete blood work on Sunday. Instructed to discontinue enclomiphene. Coding Diagnoses Hepatitis K75.9
== END 2025-01-10 16:15 | disposition home or self-care (01) | DRG 443 ==
LOC: SUATTDRO → ED 13:58 → 3W 17:48
DX: K75.9 Inflammatory liver disease, unspecified